=== PATIENT | male | born 1980 | race Caucasian/White ===

== ENCOUNTER 2023-01-23 19:54 | Emergency (ER) | payer MEDICAID ==
[~2023-01-23] VITALS: Ht 182.9 cm; Wt 109.1 kg
[2023-01-23 20:08] VITALS: BP 149/105; PULSE 96; TEMP 99.7; O2SAT 100
[2023-01-23 20:41] LABS: BASOPHILS # (AUTO) 0.1 X10'3 (0-0.2); BASOPHILS % (AUTO) 0.4 % (0-1); EOSINOPHILS # (AUTO) 0.4 X10'3 (0-0.9); EOSINOPHILS % (AUTO) 2.6 % (0-6); HEMATOCRIT 42.9 % (42.0-52.0); LYMPHOCYTES # (AUTO) 1.4 X10'3 (1.1-4.8); LYMPHOCYTES % (AUTO) 8.7 % (21-51); MEAN CORPUSCULAR HEMOGLOBIN 28.2 PG (27.0-31.0); MEAN CORPUSCULAR HGB CONC 32.7 g/dL (33.0-36.5); MEAN CORPUSCULAR VOLUME 86.2 FL (78-98); MONOCYTES # (AUTO) 1.9 X10'3 (0-0.9); MONOCYTES % (AUTO) 11.4 % (2-12); NEUTROPHILS # (AUTO) 12.6 X10'3 (1.8-7.7); NEUTROPHILS % (AUTO) 76.9 % (42-75); PLATELET COUNT 411 X10'3 (140-440); RED BLOOD COUNT 4.97 X10'6 (4.70-6.10); RED CELL DISTRIBUTION WIDTH 14.2 % (11.5-14.5); WHITE BLOOD COUNT 16.4 X10'3 (4.5-11.0)
[2023-01-23 21:01] LABS: ALANINE AMINOTRANSFERASE 47 U/L (12-78); ALBUMIN 3.3 G/DL (3.4-5.0); ALBUMIN/GLOBULIN RATIO 0.6 (1.1-1.5); ALKALINE PHOSPHATASE 129 IU/L (46-116); ANION GAP 10 (8-16); ASPARTATE AMINO TRANSFERASE 22 U/L (10-37); BILIRUBIN,TOTAL 0.6 MG/DL (0.1-1.0); BLOOD UREA NITROGEN 15 MG/DL (7-18); BUN/CREATININE RATIO 12.5 (10.0-20.0); CALCIUM 9.3 MG/DL (8.5-10.1); CHLORIDE 97 MMOL/L (99-107); GLUCOSE 96 MG/DL (70-104); LIPASE < 50 U/L (73-393); POTASSIUM 4.1 MMOL/L (3.5-5.1); SODIUM 134 MMOL/L (135-145); TOTAL CARBON DIOXIDE 26.6 MMOL/L (24-32); TOTAL PROTEIN 8.5 G/DL (6.4-8.2); eCRCL 88 ML/MIN; eGFR 66 ML/MIN
[2023-01-23] MEDS ORDERED: ondansetron/PF 4mg/2ml inj IV ONE (21:45)
[2023-01-23] MEDS ORDERED: morphine 4 MG/ML inj SYRINge IV ONE (21:45)
[2023-01-23 21:54] VITALS: RESP 18
[2023-01-23] MEDS ORDERED: iohexol 300mg/ml 100ml inj. ONE (21:58)
[2023-01-23 22:17] LABS: BILIRUBIN,URINE NEGATIVE (Neg); COLOR,URINE YELLOW (Yellow); GLUCOSE, URINE NEGATIVE (Neg); KETONES,URINE NEGATIVE (Neg); LEUKOCYTE ESTERASE ,URINE NEGATIVE (Neg); NITRITES, URINE NEGATIVE (Neg); OCCULT BLOOD,URINE NEGATIVE (Neg); PH,URINE 5.5 (4.8-8.0); PROTEIN,URINE 30 mg/dl (Neg)
[2023-01-23 22:23] LABS: CLARITY,URINE SLIGHTLY CLOUDY (Clear); UA COLLECTION TYPE VOIDED
[2023-01-23 22:28] LABS: BACTERIA,URINE FEW /HPF (Neg); RBC,URINE 0-2 /HPF (0-2); SQUAMOUS EPITHELIAL CELL,UR FEW /LPF (FEW)
[2023-01-23 22:29] LABS: FINE GRANULAR CAST 0-3 /LPF (NEGATIVE)
[2023-01-23] MEDS ORDERED: morphine 2 MG/ML inj. syringe IM ONE (23:30)
[2023-01-23] MEDS ORDERED: ondansetron 4mg rapidly disintigrating tab PO ONE (23:30)
[2023-01-23] MEDS ORDERED: levoFLOXACIN 750MG TABLET PO ONE (23:50)
[2023-01-23] MEDS ORDERED: CefTRIAXone 1000mg IM Kit (w/lidocaine diluent) IM ONE (23:50)
[2023-01-24] MEDS ORDERED: CEPH-585 PO (01:26)
[2023-01-24] MEDS ORDERED: IBUP-1984 PO (01:26)
[2023-01-24] MEDS ORDERED: METO-292 PO (01:26)
[2023-01-24] MEDS ORDERED: NITR100C6 PO (01:26)
[2023-01-24] MEDS ORDERED: ACET-1025 PO (01:26)
--- NOTE | 2023-01-24 01:35 | NUR ---
REFUSED MEDS AND VS MONITORING. NOTIFIED.
== END 2023-01-24 01:37 | disposition home or self-care (01) ==
LOC: ER 19:55
DX: N10 Acute pyelonephritis (principal); Z88.1 Allergy status to other antibiotic agents; Z88.2 Allergy status to sulfonamides; Z79.2 Long term (current) use of antibiotics; Z79.1 Long term (current) use of non-steroidal anti-inflammatories (NSAID)
CPT/HCPCS: 36415; 74176; 80053; 81001; 83605; 83690; 84145; 85025; 87088; 96372; 99285; J0696; J3490; J7030; Q9967

== ENCOUNTER 2023-10-11 23:46 | Emergency (ER) | payer MEDICAID ==
[~2023-10-11] VITALS: Ht 182.9 cm; Wt 108.2 kg
[~2023-10-11 23:46] MED LIST: CEPH-585 PO; METO-292 PO; NITR100C6 PO
[2023-10-12] MEDS ORDERED: CLINDAMYCIN 600mg IN NS 50ML 50 ML IV ONE (03:20)
[2023-10-12] MEDS ORDERED: CLIN-15 PO (03:25)
[2023-10-12] MEDS ORDERED: DOXY-457 PO (03:25)
[2023-10-12] MEDS: clindamycin 600mg/D5W 50ml 50 ML IV ONE (03:33)
[2023-10-12] MEDS: TETanus/Pertussis (Acell)/Diphther VAC/PF (Tdap-Adult) 0.5ml syringe IMVAC ONE (03:34)
[2023-10-12] MEDS: doxycycline inj 100 MG in normal saline 100ml IV soln 100 ML IV ONE (03:55)
[2023-10-12] MEDS ORDERED: IBUP-1984 PO (05:00)
[2023-10-12 05:54] VITALS: BP 135/88; PULSE 88; RESP 16; TEMP 98.4; O2SAT 98
== END 2023-10-12 05:56 | disposition home or self-care (01) ==
LOC: ER 23:47
DX: L02.414 Cutaneous abscess of left upper limb (principal); R11.0 Nausea; F15.90 Other stimulant use, unspecified, uncomplicated; Z88.8 Allergy status to other drugs, medicaments and biological substances; Z79.899 Other long term (current) drug therapy; Z79.2 Long term (current) use of antibiotics
CPT/HCPCS: 73200; 87070; 87077; 87186; 96365; 96375; 99285; J3490; 99284